=== PATIENT | female | born 1950 | race African-American/Black ===

== ENCOUNTER 2018-03-10 08:41 | Emergency (ER) | payer MEDICARE ==
[~2018-03-10] VITALS: Ht 152.4 cm; Wt 37.0 kg
[2018-03-10 09:30] VITALS: BP 145/66
[2018-03-10] MEDS ORDERED: HYDROCODONE/ACETAMINOPHEN 5/325MG TABLET PO ONE (09:30)
[2018-03-10] MEDS ORDERED: KETOROLAC 60MG/2ML VIAL IM ONE (09:30)
== END 2018-03-10 10:45 | disposition home or self-care (01) ==
LOC: ER 08:41
DX: S92.325A Nondisplaced fracture of second metatarsal bone, left foot, initial encounter for closed fracture (principal); S92.335A Nondisplaced fracture of third metatarsal bone, left foot, initial encounter for closed fracture; S92.345A Nondisplaced fracture of fourth metatarsal bone, left foot, initial encounter for closed fracture; R42 Dizziness and giddiness; E78.00 Pure hypercholesterolemia, unspecified; I10 Essential (primary) hypertension; W18.39XA Other fall on same level, initial encounter; Y93.89 Activity, other specified; Y92.89 Other specified places as the place of occurrence of the external cause; Y99.8 Other external cause status; Z98.51 Tubal ligation status
CPT/HCPCS: 29515; 73630; 96372; 99284; J1885

== ENCOUNTER 2018-05-21 15:35 | Inpatient (IN) | payer MEDICARE ==
[~2018-05-21] VITALS: Ht 152.4 cm; Wt 42.2 kg
[2018-05-21] MEDS ORDERED: FENTANYL CITRATE/PF 50MCG/ML 2ML VIAL IV ONE (17:00)
[2018-05-21] MEDS: ASPIRIN 81MG TABLET PO ONE (17:17)
[2018-05-21] MEDS: ONDANSETRON HCL 4MG/2ML INJ IV STA (17:17)
[2018-05-21] MEDS: NITROGLYCERIN 0.4MG TABLET SL SL PRN ×2 (17:17→17:40)
[2018-05-21] MEDS: NITROGLYCERIN OINT 1GM/INCH UDPKT TD ONE ×2 (17:17→17:58)
[2018-05-21 17:44] LABS: BASOPHILS % 0.8 % (0.0-2.0); EOSINOPHILS % 0.7 % (0.0-5.0); HEMATOCRIT. 39.1 % (36.0-48.0); HEMOGLOBIN. 12.7 g/dL (12.0-16.0); LYMPHOCYTES % 13.4 % (20.0-50.0); MEAN CORPUSCULAR HEMOGLOBIN 29.3 pg (28.0-32.0); MEAN CORPUSCULAR VOLUME 90.4 fL (81.0-99.0); MEAN PLATELET VOLUME 7.9 fl (7.4-10.4); MONOCYTES % 8.4 % (2.0-8.0); NEUTROPHILS % 76.7 % (40.0-76.0); PLATELET 248 x1000/uL (130-400); RED BLOOD CELL COUNT 4.32 mill/uL (4.2-5.4); RED CELL DISTRIBUTION WIDTH 14.3 % (11.6-14.6)
[2018-05-21 17:45] LABS: CHLORIDE 104 mEq/L (98-107)
[2018-05-21 17:53] LABS: ETHANOL BLOOD 13 mg/dL
[2018-05-21 17:54] LABS: D-DIMER 0.28 mg/L FEU (<0.50); PARTIAL THROMBOPLASTIN TIME 29.2 sec (23.4-31.0); PROTHROMBIN TIME 10.4 sec (9.1-11.1)
[2018-05-21 18:15] LABS: *AMPHETAMINES SCREEN URINE NEGATIVE (NEGATIVE); *BARBITURATES SCREEN URINE NEGATIVE (NEGATIVE)
[2018-05-21 18:16] LABS: *BENZODIAZEPINES SCREEN URINE NEGATIVE (NEGATIVE); *COCAINE SCREEN URINE NEGATIVE (NEGATIVE); METHADONE URINE SCREEN NEGATIVE (NEGATIVE); OPIATES URINE SCREEN NEGATIVE (NEGATIVE); PHENCYCLIDINE URINE SCREEN NEGATIVE (NEGATIVE)
[2018-05-21 18:17] LABS: CANNABINOID URINE SCREEN PRESUMTIVE POSITIVE (NEGATIVE)
[2018-05-21 21:45] VITALS: BP 150/84
[2018-05-21] MEDS ORDERED: MORPHINE SULFATE 10MG/5ML ORAL SOLN UDC PO NR (23:00)
[2018-05-21] MEDS ORDERED: CEFTRIAXONE 1 G PREMIX 50 ML IV SCH (23:45)
[2018-05-22] VITALS: BP 133/82
[2018-05-22] MEDS ORDERED: MAGNESIUM/ALUMINUM HYDROXIDE/SIMETHICONE 30ML UDC PO PRN
[2018-05-22] MEDS ORDERED: ONDANSETRON HCL 4MG/2ML INJ IV PRN
[2018-05-22] MEDS ORDERED: CEFTRIAXONE 1 G PREMIX 50 ML IV SCH
[2018-05-22] MEDS ORDERED: LORAZEPAM 0.5MG TABLET PO PRN
[2018-05-22] MEDS ORDERED: IPRATROPIUM/ALBUTEROL 0.5-3(2.5)MG/3ML NEB INH PRN
[2018-05-22] MEDS ORDERED: CLONIDINE 0.1MG TABLET PO PRN
[2018-05-22 04:00] VITALS: BP 150/84
[2018-05-22] MEDS: HYDROCODONE/ACETAMINOPHEN 5/325MG TABLET PO PRN ×3 (05:25→18:41)
[2018-05-22] MEDS: CEFTRIAXONE 1 G PREMIX 50 ML IV SCH (05:26)
[2018-05-22 07:43] LABS: BASOPHILS % 0.7 % (0.0-2.0); EOSINOPHILS % 0.4 % (0.0-5.0); HEMATOCRIT. 37.1 % (36.0-48.0); HEMOGLOBIN. 12.3 g/dL (12.0-16.0); LYMPHOCYTES % 9.9 % (20.0-50.0); MEAN CORPUSCULAR HEMOGLOBIN 30.2 pg (28.0-32.0); MEAN CORPUSCULAR VOLUME 91.3 fL (81.0-99.0); MEAN PLATELET VOLUME 8.2 fl (7.4-10.4); MONOCYTES % 12.1 % (2.0-8.0); NEUTROPHILS % 76.9 % (40.0-76.0); PLATELET 232 x1000/uL (130-400); RED BLOOD CELL COUNT 4.06 mill/uL (4.2-5.4); RED CELL DISTRIBUTION WIDTH 14.6 % (11.6-14.6)
[2018-05-22 07:49] LABS: CHLORIDE 101 mEq/L (98-107)
[2018-05-22 08:00] VITALS: BP 134/77
[2018-05-22 08:02] LABS: LDL CHOLESTEROL 82 mg/dL (5-100)
[2018-05-22 08:03] LABS: HDL CHOLESTEROL 92 mg/dL (40-59); T4 FREE 0.74 ng/dL (0.76-1.46)
[2018-05-22] MEDS: PANTOPRAZOLE 40MG DR TABLET PO SCH ×2 (08:23→20:54)
[2018-05-22] MEDS ORDERED: LEVOTHYROXINE SODIUM 125MCG TABLET PO NR (09:15)
[2018-05-22] MEDS: ASPIRIN 81MG EC TABLET PO SCH (09:44)
[2018-05-22] MEDS: ENOXAPARIN 40MG/0.4ML SYR SUBCUT SCH (09:46)
[2018-05-22] MEDS ORDERED: AMLO5TAB4 MT (09:52)
[2018-05-22] MEDS ORDERED: LEVO88TA2 MT (09:52)
[2018-05-22] MEDS ORDERED: GABA100C MT (09:52)
[2018-05-22] MEDS ORDERED: ATOR10TA MT (09:52)
[2018-05-22] MEDS ORDERED: TRAZ150T78 MT (09:52)
[2018-05-22 12:00] VITALS: BP 122/85
[2018-05-22] MEDS ORDERED: POTASSIUM CHLORIDE 20MEQ TABLET SR PO SCH (13:45)
[2018-05-22 16:00] VITALS: BP 139/76
[2018-05-22] MEDS ORDERED: ACETAMINOPHEN 650MG/20.3ML UDC PO PRN (17:15)
[2018-05-22] MEDS ORDERED: MEDICATION NOT ON FORMULARY EA (Trazodone Hcl 50 TAB) MT PRN (17:45)
[2018-05-22] MEDS ORDERED: DIPHENHYDRAMINE 50MG/ML VIAL IV PRN (18:00)
[2018-05-22] MEDS ORDERED: DOCUSATE SODIUM 100MG CAPSULE PO PRN (18:00)
[2018-05-22] MEDS ORDERED: TRAZODONE HCL 50MG TABLET PO PRN (18:00)
[2018-05-22] MEDS: GABAPENTIN 100MG CAPSULE PO SCH (18:41)
[2018-05-22] MEDS: AMLODIPINE 5MG TABLET PO SCH (18:43)
[2018-05-22 20:00] VITALS: BP 139/86
[2018-05-22] MEDS ORDERED: ATORVASTATIN CALCIUM 10MG TABLET PO SCH (21:00)
[2018-05-23] VITALS: BP 139/83
[2018-05-23] MEDS: HYDROCODONE/ACETAMINOPHEN 5/325MG TABLET PO PRN ×3 (02:03→16:36)
[2018-05-23] MEDS: CEFTRIAXONE 1 G PREMIX 50 ML IV SCH (02:25)
[2018-05-23 04:00] VITALS: BP 132/68
[2018-05-23] MEDS: PANTOPRAZOLE 40MG DR TABLET PO SCH (06:28)
[2018-05-23] MEDS ORDERED: LEVOTHYROXINE SODIUM 25MCG TABLET PO SCH (06:45)
[2018-05-23] MEDS ORDERED: LEVOTHYROXINE SODIUM 100MCG TABLET PO SCH (06:45)
[2018-05-23 08:00] VITALS: BP 140/77
[2018-05-23 08:15] LABS: HEMATOCRIT. 42.6 % (36.0-48.0); HEMOGLOBIN. 13.9 g/dL (12.0-16.0); MEAN CORPUSCULAR VOLUME 92.3 fL (81.0-99.0); PLATELET 231 x1000/uL (130-400); RED BLOOD CELL COUNT 4.61 mill/uL (4.2-5.4); RED CELL DISTRIBUTION WIDTH 14.4 % (11.6-14.6)
[2018-05-23 08:22] LABS: CHLORIDE 97 mEq/L (98-107)
[2018-05-23 08:27] LABS: PHOSPHORUS 2.5 mg/dL (2.5-4.9)
[2018-05-23] MEDS: ASPIRIN 81MG EC TABLET PO SCH (08:38)
[2018-05-23] MEDS: GABAPENTIN 100MG CAPSULE PO SCH ×3 (08:38→16:35)
[2018-05-23] MEDS: AMLODIPINE 5MG TABLET PO SCH (08:39)
[2018-05-23] MEDS: ENOXAPARIN 40MG/0.4ML SYR SUBCUT SCH (08:40)
[2018-05-23] MEDS ORDERED: NICOTINE 7MG PATCH TD SCH (09:00)
[2018-05-23] MEDS ORDERED: MEDICATION NOT ON FORMULARY EA (Gabapentin (Neurontin) 1 CAP) MT SCH (09:00)
[2018-05-23 12:00] VITALS: BP 135/78
[2018-05-23 14:11] LABS: PLATELET ESTIMATE NORMAL
[2018-05-23 15:50] LABS: CLARITY URINE CLEAR (CLEAR); COLOR URINE YELLOW (YELLOW); KETONES URINE 1+ (NEGATIVE); LEUKOCYTE ESTERASE URINE NEGATIVE (NEGATIVE); NITRITE URINE NEGATIVE (NEGATIVE); OCCULT BLOOD URINE 1+ (NEGATIVE); PROTEIN URINE 1+ (NEGATIVE); UROBILINOGEN URINE 0.2 E.U./dL (0.2-1.0)
[2018-05-23 16:00] VITALS: BP 150/90
[2018-05-23] MEDS ORDERED: LEVOTHYROXINE SODIUM 25MCG TABLET PO NR (17:15)
[2018-05-23 18:03] VITALS: BP 138/82
== END 2018-05-23 18:35 | disposition home or self-care (01) | DRG 206 ==
LOC: ER 15:35 → 5WST 18:43 → EDBEDREQTM 18:44 → EDBEDREQ 18:44 → ENRESERV 20:18
PROVIDERS: ADMIT Internal Medicine; ATTEND Internal Medicine
DX: M94.0 Chondrocostal junction syndrome [Tietze] (principal); J44.1 Chronic obstructive pulmonary disease with (acute) exacerbation; N39.0 Urinary tract infection, site not specified; E87.6 Hypokalemia; F17.210 Nicotine dependence, cigarettes, uncomplicated; E03.9 Hypothyroidism, unspecified; M79.7 Fibromyalgia; M06.9 Rheumatoid arthritis, unspecified; F19.10 Other psychoactive substance abuse, uncomplicated; I10 Essential (primary) hypertension; Z98.51 Tubal ligation status; Z71.6 Tobacco abuse counseling
CPT/HCPCS: 36415; 71045; 80048; 80061; 80305; 83735; 83880; 84100; 84439; 84443; 84484; 85007; 85027; 85379; 93005; 93306; 93970; 96374; 96375; 99291; G0482; J0696; J1650; J2405; J3010; J7040